=== PATIENT | female | born 1960 | race Two or more races ===

== ENCOUNTER 2018-09-11 06:40 | Day surgery (SDC) | payer OTHER ==
[~2018-09-11] VITALS: Ht 152.4 cm; Wt 53.0 kg
[~2018-09-11 06:40] MED LIST: GLIP5 PO; IBUP-2071 PO; INSU100I26 SQ; LOSA50TA64 PO; LOVA20 PO; METF-960 PO; SODIUM CHLORIDE 0.9% 1,000 ML IV ONE
[2018-09-11] MEDS ORDERED: LIDOCAINE 4% 50 ML SOLUTION TP ONE (06:41)
[2018-09-11] MEDS ORDERED: SODIUM CHLORIDE 0.9% 1,000 ML IV ONE ×2 (07:08→07:11)
[2018-09-11] MEDS ORDERED: MIDAZOLAM HCL 2 MG/2 ML VIAL ONE (07:36)
[2018-09-11] MEDS ORDERED: FentaNYL CITRATE-PF 100 MCG/2 ML VIAL ONE (07:36)
[2018-09-11 07:44] LABS: GLUCOMETER DEV NAME(LOC) SDS.; GLUCOSE,POINT OF CARE 197 MG/DL (70-110)
== END 2018-09-11 09:30 | disposition home or self-care (01) ==
LOC: SURGERY 06:40
PROVIDERS: ATTEND Internal Medicine Critical Care Medicine
DX: R91.1 Solitary pulmonary nodule (principal); Z53.8 Procedure and treatment not carried out for other reasons; J98.09 Other diseases of bronchus, not elsewhere classified; J98.8 Other specified respiratory disorders; I10 Essential (primary) hypertension; E78.00 Pure hypercholesterolemia, unspecified; E11.9 Type 2 diabetes mellitus without complications; M19.90 Unspecified osteoarthritis, unspecified site; Z79.1 Long term (current) use of non-steroidal anti-inflammatories (NSAID); Z79.4 Long term (current) use of insulin; Z79.84 Long term (current) use of oral hypoglycemic drugs; Z87.891 Personal history of nicotine dependence; Z98.890 Other specified postprocedural states; Z79.899 Other long term (current) drug therapy
CPT/HCPCS: 82962; J2250; J3010; J7030

== ENCOUNTER 2018-09-16 06:24 | Day surgery (SDC) | payer OTHER ==
[~2018-09-16] VITALS: Ht 152.4 cm; Wt 52.0 kg
[~2018-09-16 06:24] MED LIST changes: -SODIUM CHLORIDE 0.9% 1,000 ML IV ONE
[2018-09-16] MEDS ORDERED: ALBUTEROL SULFATE 2.5 MG/0.5 ML NEB SOLUTION NEB ONE (06:25)
[2018-09-16] MEDS ORDERED: LIDOCAINE 2% 30 ML JELLY TP ONE (06:25)
[2018-09-16] MEDS ORDERED: LIDOCAINE 4% 50 ML SOLUTION TP ONE (06:25)
[2018-09-16] MEDS ORDERED: BENZOCAINE 20% 50 MCG/SPRAY 57 GM TP ONE (06:25)
[2018-09-16] MEDS ORDERED: SODIUM CHLORIDE 0.9% 1,000 ML IV ONE ×2 (06:30→06:40)
[2018-09-16] MEDS ORDERED: FentaNYL CITRATE-PF 100 MCG/2 ML VIAL ONE (08:02)
[2018-09-16] MEDS ORDERED: MIDAZOLAM HCL 2 MG/2 ML VIAL ONE (08:02)
[2018-09-16] MEDS ORDERED: MethylPREDNISolone SOD SUCC 125 MG/2 ML VIAL ONE (08:33)
[2018-09-16] MEDS ORDERED: MethylPREDNISolone SOD SUCC 125 MG/2 ML VIAL IVP ONE (09:00)
[2018-09-16] MEDS ORDERED: OXYGEN THERAPY IH SCH (20:00)
== END 2018-09-16 10:05 | disposition home or self-care (01) ==
LOC: SURGERY 06:24
PROVIDERS: ATTEND Internal Medicine Critical Care Medicine
DX: J38.4 Edema of larynx (principal); B37.0 Candidal stomatitis; J45.909 Unspecified asthma, uncomplicated; I10 Essential (primary) hypertension; E11.9 Type 2 diabetes mellitus without complications; M19.90 Unspecified osteoarthritis, unspecified site; F17.210 Nicotine dependence, cigarettes, uncomplicated; Z79.899 Other long term (current) drug therapy; Z98.890 Other specified postprocedural states
CPT/HCPCS: 31623; 31624; 31625; 71045; 87015; 87070; 87205; 87206; 87220; J2250; J2930; J3010; J7030